=== PATIENT | female | born 1945 | race Caucasian/White ===

== ENCOUNTER 2019-01-21 05:26 | Inpatient (IN) | payer OTHER, BC ==
[~2019-01-21] VITALS: Ht 160 cm; Wt 68.0 kg
--- NOTE | ~2019-01-21 | O ---
[facility] [place] [address] OPERATIVE REPORT Name: HUBERT CORDERO Room #: 460-P [facility]#: [id number] Admission: 01/21/19 ������������������ Attend Phys: Fabian Bethea MD Discharge: ������������������ Date of : 45 Report #: [id number] THIS REPORT FOR: //name// CC: Rigoberto Olson DATE OF SERVICE: 01/21/2019 PREOPERATIVE DIAGNOSIS: Symptomatic large hiatal hernia. POSTOPERATIVE DIAGNOSIS: Symptomatic large hiatal hernia. OPERATIVE PROCEDURE DONE: 1. Laparoscopic repair of hiatal hernia. 2. Partial Toupet fundoplication. SURGEON: Fabian Bethea MD. REGULATORY AFFAIRS SPEC: [place]. INDICATIONS: The patient is a 73-year-old female who presented with features of refractory reflux symptoms and intermittent episodes of dysphagia that she has been having. An upper GI endoscopy and a CT scan that was done showed a large hiatal hernia. The patient was advised laparoscopic repair of the same. PROCEDURE: After explaining to the patient in detail and informed consent was obtained. The patient was identified in the preoperative holding area. The patient was transferred to the operating room and was placed in supine position. Sequential compression devices were placed for DVT prophylaxis. Preoperative antibiotics were given. After induction of anesthesia, the abdomen was prepped and draped in a sterile fashion. Through a left upper quadrant 1 cm incision and using Optiview technique, peritoneal cavity was entered and pneumoperitoneum was created. Thereafter, under direct vision, another 5 mm trocar was placed in the left mid abdomen, another 12 mm trocar was placed in the right mid abdomen, another 5 mm trocar was placed in the right subcostal region and through a 1 cm incision in the epigastrium, a Nina retractor was introduced and the left lobe of the liver was retracted. Upon initial inspection, the patient was noted to have a moderate to large size hiatal hernia with most of the stomach within the hernia. Using pars flaccida technique, the right lillian was identified. The sac was then dissected off the right lillian using hook electrocautery and then using blunt dissection, I continued dissection anteriorly. The phrenoesophageal membrane was divided anteriorly. I continued dissection of the sac anteriorly and along the left lillian. The posterior dissection was difficult because of poor [facility] [address] [place] [address] OPERATIVE REPORT Name: HUBERT CORDERO Room #: 460-P [facility]#: [id number] Admission: 01/21/19 ������������������ Attend Phys: Fabian Bethea MD Discharge: ������������������ Date of : 45 Report #: [id number] visualization. Therefore, at this point, I took down the short gastric vessels using the EnSeal, this was continued superiorly. The gastrophrenic ligament was divided. At this point, I then proceeded with the posterior dissection of the sac and once all the entire stomach and the GE junction was within the stomach, I then performed a cruroplasty. Two interrupted [id number] sutures were placed to approximate the crura posteriorly and 2 interrupted sutures were placed anteriorly. Care was taken not to tighten the crura too much. I then did a partial Toupet fundoplication. I brought the fundus of the stomach through the retrogastric window to the right side and the shoeshine maneuver was performed. I then placed 3 interrupted sutures between the fundus of the stomach and the esophagus on both sides to create a 270-degree wrap. The esophagus was then anchored onto the crura to prevent any recurrence of the hernia. Absolute hemostasis was ensured. Sterile saline irrigation was given. Approximately about 10% of lidocaine and Marcaine mixture was instilled under the left hemidiaphragm. The 12 mm port site incision was then closed with 0 Vicryl using a fascial closure device. Skin was closed with 4-0 Monocryl for all the incisions. Dermabond was applied. The patient was stable at the end of the procedure. The patient was awoken from anesthesia and was transferred to the recovery room in stable condition. ESTIMATED BLOOD LOSS: Approximately 25 mL. CONDITION: The patient is stable. FLUIDS GIVEN: Per anesthesia notes. SPECIMEN SENT: None. COMPLICATIONS: None. ANESTHESIA: General anesthesia. ��������������������������������������������� ���������������������������������������� By: ��������������������������������������������� 1925 [birth year] Fabian Bethea MD /nt
--- NOTE | ~2019-01-21 | EKG ---
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
[~2019-01-21 05:26] MED LIST: ACETAMINOPHEN325 M1 PO; ACETAMINOPHEN500 M1 PO; ALBUTEROL2.5 MG/31 INH; ASPIRIN EC81 M1 PO; AZITHROMYCIN500 M3 PO; BIOTIN PO; BIOTIN5000 MCG PO; CEFTIN 250 MG250 MG PO; COZAAR 25 MG TA25 M1 PO; DILTIAZEM 24HR240 M2 PO; DILTIAZEM 24HR240 MG PO; HYDROCODON-ACE1 EAC5 PO; LASIX 20 MG TAB20 MG PO; MUCINEX600 MG PO; OMEPRAZOLE40 MG PO; VITAMIN D-32000 UNIT PO
[2019-01-21 13:17] VITALS: BP 101/84
[2019-01-21 18:00] VITALS: BP 118/57
[2019-01-21 18:30] VITALS: BP 87/73
[2019-01-21 19:00] VITALS: BP 129/64
[2019-01-21 19:16] VITALS: BP 118/57; BP 128/62
--- NOTE | 2019-01-21 19:16 | NUR ---
patient arrived post op approximantly 1800 with 5 lap sites from lap hiatol hernia by dr luna. a/ox4 from home with ,RA, 2/2 pulses, internal monitor left chest, CLD,up with assist to bathroom. fall precautions in place at this time. Admission assesment completed. fall conscent signed. call light in reach.
[2019-01-21 19:57] VITALS: BP 135/70
[2019-01-22 03:42] VITALS: BP 116/51
--- NOTE | 2019-01-22 07:28 | EKG ---
[address] [address] ELECTROCARDIOGRAM REPORT Name: HUBERT CORDERO Room #: 460-P ADM IN M.R.#: [id number] ������������������ Admission: 01/21/19 ������������������ Attend Phys: Matthew Mahoney MD Discharge: ������������������ Date of : 45 Report #: [id number] ����������������������������������������������������������������� [id number] THIS REPORT FOR: //name// [facility] Test Date: 2019-01-21 Test Time: 11:12:10 Pat Name: HUBERT CORDERO Department: Room: 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 : 1945 Requested By: Fabian Bethea Order Number: [id number] MD: Harry Gilbert Measurements Intervals [place] Rate: 66 P: 58 [place]: 183 QRS: 13 QRSD: 96 T: 9 QT: 409 QTc: 429 Interpretive Statements Sinus rhythm Normal tracing No previous ECG available for comparison Electronically Signed On 01-22-2019 7:28:40 CDT by Harry Gilbert [email or web address] ��������������������������������������������� <ELECTRONICALLY SIGNED> ���������������������������������������� By: Harry Gilbert MD, [facility] ��������������������������������������������� 01/22/19 0728 1112 1112 Harry Gilbert MD, FACC /EPI
--- NOTE | 2019-01-22 07:30 | NUR ---
ASSUMED CARE AROUND 1900. AXOX4. LAP SITES CDI. VOID WELL TO TOILET. NO S/S ACUTE DISTRESS NOTED OR REPORTED AT THIS TIME. WILL CONT TO MONITOR FOR ANY CHANGES IN CONDITION.
[2019-01-22 08:48] VITALS: BP 128/64
[2019-01-22 09:09] LABS: ABSOLUTE NEUTROPHILS 17.5 thou/uL (1.4-8.2); BASOPHILS 0.4 % (0.0-2.0); HEMATOCRIT 41.3 % (37.0-47.0); HEMOGLOBIN 13.5 gm/dL (12.0-15.0); LYMPHOCYTES 3.4 % (24.0-44.0); MCH 29.5 pg (26.0-34.0); MCHC 32.8 g/dL (28.0-37.0); MCV 89.9 fL (80.0-100.0); MONOCYTES 2.6 % (1.0-8.0); PLATELET COUNT 279 thou/uL (150-400); POLYS 93.6 % (36.0-66.0); RBC 4.59 mil/uL (4.20-5.00); RDW 13.5 % (10.5-14.5); WBC 18.7 thou/uL (4.0-11.0)
[2019-01-22 09:17] LABS: CALCIUM 9.2 mg/dL (8.5-10.1); CREATININE 0.9 mg/dL (0.6-1.0); MAGNESIUM 1.9 mg/dL (1.8-2.4); POTASSIUM 3.9 mmol/L (3.5-5.1)
[2019-01-22 14:52] VITALS: BP 128/64
[2019-01-22 14:59] VITALS: BP 128/64
--- NOTE | 2019-01-22 16:10 | NUR ---
PATIENT DOING VERY WELL TODAY. DENIED PAIN. LAP SITES INTACT. GOOD BOWELL SOUNDS. VOIDING WITHOUT DIFFICULTY AND IN ADEQUATE AMOUNTS. TOLERATING CLEAR LIQUID DIET. PATIENT STATED READY FOR DISCHARGE. DISCHARGE INSTRUCTIONS GIVEN. DISMISSED IN STABLE CONDITION.
== END 2019-01-22 15:45 | disposition home or self-care (01) | DRG 328 ==
LOC: TBA 05:26 → OR 05:26 → 4W 05:26 → TBA 05:27 → OR 10:31 → 4W 18:01 → OR 18:10 → 4W 18:11 → ENTRNSPT 01-22 15:14 → EDTRNSPTSTS 01-22 15:43 → 4W 01-22 15:45
PROVIDERS: Nurse Practitioner; ADMIT Internal Medicine
PROC: 0DQ44ZZ Repair Esophagogastric Junction, Percutaneous Endoscopic Approach (ICD-10-PCS; principal; 2019-01-21)
PROC: 0BQT4ZZ Repair Diaphragm, Percutaneous Endoscopic Approach (ICD-10-PCS; principal; 2019-01-21)
DX: K44.9 Diaphragmatic hernia without obstruction or gangrene (principal); K21.9 Gastro-esophageal reflux disease without esophagitis; I48.91 Unspecified atrial fibrillation; Z90.710 Acquired absence of both cervix and uterus; Z88.2 Allergy status to sulfonamides; Z79.899 Other long term (current) drug therapy
CPT/HCPCS: 10040; 10047; 50010; 50101; 50249; 50386; 50555; 50558; 50804; 51489; 52265; 52266; 53307; 53310; 54022; 54118; 55326; 56462; 56525; 56526; 56531; 57092; 62110; 62900; 70005

== ENCOUNTER → 2020-01-19 | Outpatient (CLI) | payer OTHER, BC | LOC: SJCVC 13:51 | PROVIDERS: ATTEND Internal Medicine | DX: R94.31 Abnormal electrocardiogram [ECG] [EKG] (principal); I11.9 Hypertensive heart disease without heart failure; I48.0 Paroxysmal atrial fibrillation; E78.5 Hyperlipidemia, unspecified; Z79.899 Other long term (current) drug therapy ==

== ENCOUNTER → 2020-03-15 | Outpatient (CLI) | payer OTHER, BC | LOC: SJCVC 09:59 | PROVIDERS: ATTEND Internal Medicine | DX: E78.5 Hyperlipidemia, unspecified (principal); I10 Essential (primary) hypertension; I48.0 Paroxysmal atrial fibrillation; Z79.899 Other long term (current) drug therapy ==